=== PATIENT | female | born 1945 | race Hispanic/Latino ===

== ENCOUNTER 2022-08-05 19:22 | Emergency (ER) | payer MEDICARE ==
[~2022-08-05] VITALS: Ht 149.9 cm; Wt 68.0 kg
[2022-08-05] MEDS ORDERED: LIDOCAINE HCL 1% LOCAL INJ 20 ML VIAL INJ STA (19:39)
[2022-08-05] MEDS ORDERED: TETANUS/DIPHTHERIA TOX ADULT 0.5 ML SYR IM ONE (19:45)
[2022-08-05] MEDS ORDERED: CEPHALEXIN500 MG PO (20:44)
[2022-08-05] MEDS ORDERED: ULTRAM 50MG50 MG PO (20:44)
[2022-08-05 21:42] VITALS: BP 162/80
== END 2022-08-05 21:37 | disposition home or self-care (01) ==
LOC: ER 19:25
DX: S68.127A Partial traumatic metacarpophalangeal amputation of left little finger, initial encounter (principal); W23.1XXA Caught, crushed, jammed, or pinched between stationary objects, initial encounter; Y92.89 Other specified places as the place of occurrence of the external cause; I10 Essential (primary) hypertension; E78.5 Hyperlipidemia, unspecified
CPT/HCPCS: 11760; 73140; 99283; J2001